=== PATIENT | female | born 1990 | race Caucasian/White ===

== ENCOUNTER 2018-01-18 07:45 | Emergency (ER) | payer MEDICAID ==
[2018-01-18 07:54] VITALS: BP 118/72
[2018-01-18] MEDS ORDERED: AZITHROMYCIN 250 MG TABLET PO ONE (08:31)
--- NOTE | 2018-01-18 08:33 | ER Document Report ---
ED General - General Chief Complaint: Ear Pain Stated Complaint: EAR PAIN Time Seen by Provider: 01/18/18 08:28 Mode of Arrival: Ambulatory Information source: Patient Notes: 27-year-old female with no reported past medical history presents with complaint of right ear pain that started 1 day prior to arrival. Patient states she has had a recent upper respiratory infection which included a cough, sore throat which has improved. She began feeling an aching throbbing pain in her right ear yesterday for which she took Tylenol without relief. She denies any fever, chills, nausea, vomiting, chest pain, shortness of breath, abdominal pain, back pain, dysuria, hematuria, rash. TRAVEL OUTSIDE OF THE [place] IN LAST 30 DAYS: No - HPI Onset: Yesterday Onset/Duration: Sudden Quality of pain: Achy, Throbbing Severity: Mild Associated symptoms: Earache. denies: Fever, Headache, Shortness of breath Exacerbated by: Denies Relieved by: Denies Similar symptoms previously: No - Related Data Allergies/Adverse Reactions: Penicillins Allergy (Verified 07/31/16 16:10) Past Medical History - General Information source: Patient - Social History Smoking Status: Never Smoker Frequency of alcohol use: None Drug Abuse: None Family History: Reviewed & Not Pertinent Past Surgical History: Reports: Hx Section - x2 - Immunizations Immunizations up to date: No Hx Diphtheria, Pertussis, Tetanus Vaccination: No Review of Systems - Review of Systems Notes: She denies any fever, chills, nausea, vomiting, chest pain, shortness of breath , abdominal pain, back pain, dysuria, hematuria, rash. Physical Exam - Vital signs Vitals: Temp Pulse Resp BP Pulse Ox 98.6 F 104 H 16 118/72 98 01/18/18 07:53 01/18/18 07:53 01/18/18 07:53 01/18/18 07:53 01/18/18 07:53 Interpretation: Normal, Tachypneic. No: Febrile - Notes Notes: PHYSICAL EXAMINATION: GENERAL: Well-appearing, well-nourished and in no acute distress. HEAD: Atraumatic, normocephalic. EYES: Pupils equal round and reactive to light, extraocular movements intact, conjunctiva are normal. ENT: Nares patent, oropharynx clear without exudates. Moist mucous membranes. Right TM erythematous, bulging. NECK: Normal range of motion, supple without lymphadenopathy LUNGS: Breath sounds clear to auscultation bilaterally and equal. No wheezes rales or rhonchi. HEART: Regular rate and rhythm without murmurs ABDOMEN: Soft, nontender, nondistended abdomen. No guarding, no rebound. No masses appreciated. Female : deferred Musculoskeletal: Normal range of motion, no pitting or edema. No cyanosis. NEUROLOGICAL: Cranial nerves grossly intact. Normal speech, normal gait. Normal sensory, motor exams PSYCH: Normal mood, normal affect. SKIN: Warm, Dry, normal turgor, no rashes or lesions noted. Course - Re-evaluation Re-evalutation: 01/18/18 10:40 27-year-old female presented with complaint of right ear pain for 1 day. Upon arrival vitals were reviewed. Patient is mildly tachycardic at a rate of 104 but afebrile and not hypoxic. She does not appear toxic or dehydrated. She did no acute distress. Exam is significant for right otitis media. She was administered azithromycin 500 mg in the department and was discharged home with azithromycin secondary to penicillin allergy. Patient advised to continue taking Tylenol Motrin as needed for pain. Patient was discharged home in stable condition. - Vital Signs Vital signs: Temp Pulse Resp BP Pulse Ox 98.6 F 104 H 16 118/72 98 01/18/18 07:53 01/18/18 07:53 01/18/18 07:53 01/18/18 07:53 01/18/18 07:53 Discharge - Discharge Clinical Impression: Right otitis media Qualifiers: Otitis media type: unspecified Qualified Code(s): H66.91 - Otitis media, unspecified, right ear Condition: Good Disposition: HOME, SELF-CARE Instructions: Otitis Media ([facility]) Prescriptions: Azithromycin [Zithromax 250 mg Tablet] 250 mg PO ASDIR PRN #4 tablet PRN Reason: Referrals: CHAVO WEST DO [Primary Care Provider] - Follow up as needed
== END 2018-01-18 08:46 | disposition home or self-care (01) ==
LOC: ER 07:45
DX: H66.91 Otitis media, unspecified, right ear (principal); H92.01 Otalgia, right ear; R00.0 Tachycardia, unspecified; Z88.0 Allergy status to penicillin
CPT/HCPCS: 99282; Q0144